=== PATIENT | male | born 1970 | race Caucasian/White ===

== ENCOUNTER 2017-01-06 18:43 | Emergency (ER) | payer OTHER ==
[~2017-01-06] VITALS: Ht 175.3 cm; Wt 81.2 kg
[2017-01-06] MEDS ORDERED: NORCO 5-325 TA1 EACH PO (20:14)
[2017-01-06 20:33] VITALS: BP 129/80
== END 2017-01-06 20:33 | disposition home or self-care (01) ==
LOC: ER 18:43
DX: S42.002A Fracture of unspecified part of left clavicle, initial encounter for closed fracture (principal); W22.8XXA Striking against or struck by other objects, initial encounter; Y93.61 Activity, american tackle football; Y92.89 Other specified places as the place of occurrence of the external cause; Y99.8 Other external cause status